=== PATIENT | male | born 1945 | race Caucasian/White ===

== ENCOUNTER 2018-06-26 09:17 | Inpatient (IN) ==
[2018-06-26 10:06] LABS: Basophils % 0.4 % (0.0-0.8); Eosinophils # 0.1 10*3/uL (0.0-0.87); Eosinophils % 1.5 % (0.00-10.9); Hematocrit 43.4 VOL% (42.0-52.0); Hemoglobin 14.3 GM/DL (14.0-18.0); Immature Granulocytes % 0.4 %; Immature Granulocytes Absolute 0.03 #; Lymphocytes % 12.4 % (21.2-54.2); Mean Corpuscular HGB Conc 32.9 GM/DL (32-36); Mean Corpuscular Hemoglobin 30 PG (27-34); Mean Corpuscular Volume 92.3 FL (87-102); Monocytes # 0.7 10*3/uL (0.11-0.8); Neutrophils # 6.3 10*3/uL (1.4-7.4); Neutrophils % 77.3 % (38.7-73.9); Platelet Count 130 T/CUMM (130-400); Red Cell Distribution Width 14.4 % (9.3-17.3); White Blood Count 8.2 T/CUMM (4-12)
[2018-06-26 10:48] LABS: Albumin 3.8 G/DL (3.4-5.0); Bilirubin,Total 1.3 MG/DL (0.2-1.0); Calcium 8.2 MG/DL (8.5-10.1); Osmolality,Calculated 279.4 MOS/KG (273-304); Potassium 4.3 MMOL/L (3.5-5.1); Total Protein 6.8 G/DL (6.4-8.3)
[2018-06-26] MEDS ORDERED: methylPREDNISolone SOD SUC 125 MG/2 ML VIAL IV STA (12:06)
[2018-06-26] MEDS ORDERED: LEVOFLOXACIN INJ 500 MG in PREMIX 1 EACH IV STA (12:07)
[2018-06-26] MEDS ORDERED: ACETAMINOPHEN 325 MG TABLET PO PRN (12:40)
[2018-06-26] MEDS ORDERED: ONDANSETRON 4 MG/2 ML VIAL IV PRN (12:40)
[2018-06-26] MEDS ORDERED: ALBUTEROL 2.5 MG/3 ML NEB RESP TX PRN (13:00)
[2018-06-26] MEDS ORDERED: PNEUMOCOCCAL VACCINE (13 VALENT) 0.5 ML SYRINGE IM ONE (13:51)
[2018-06-26 14:34] LABS: INR 1.8; PT Patient Result 18.8 SECS
[2018-06-26] MEDS ORDERED: WARFARIN 10 MG TABLET PO SCH (18:00)
[2018-06-26] MEDS: ALBUTEROL 2.5 MG/3 ML NEB RESP TX SCH (19:21)
[2018-06-26] MEDS: TAMSULOSIN 0.4 MG CAPSULE PO SCH (21:17)
[2018-06-26] MEDS: CELECOXIB 200 MG CAPSULE PO SCH (21:17)
[2018-06-26] MEDS: DILTIAZEM CD 240 MG CAPSULE PO SCH (21:17)
[2018-06-26] MEDS: FLECAINIDE 100 MG TABLET PO SCH (21:17)
[2018-06-26] MEDS: MELATONIN 3 MG TABLET PO SCH (21:17)
[2018-06-26] MEDS: PRAVASTATIN 20 MG TABLET PO SCH (21:18)
[2018-06-26] MEDS: LORATADINE 10 MG TABLET PO SCH (21:18)
[2018-06-26] MEDS: methylPREDNISolone SOD SUC 40 MG/1 ML VIAL IV SCH (21:20)
[2018-06-26] MEDS: DOXYCYCLINE HYCLATE INJ 100 MG in SODIUM CHLORIDE 0.9% 100 ML IV SCH (21:22)
[2018-06-27] MEDS: ALBUTEROL 2.5 MG/3 ML NEB RESP TX SCH ×4 (00:38→18:56)
[2018-06-27 01:08] LABS: Apearance,Urine CLEAR (Clear); Bilirubin,Urine Negative (Negative); Blood, Urine Negative (Negative); Glucose,Urine (UA) 50 mg/dL (Negative); Ketones,Urine Negative (Negative); Mucus,Urine Occasional /LPF (Occasional); Nitrite,Urine Negative (Negative); Protein,Urine Negative; RBC,Urine 2 /HPF (0-4); Urine Color Yellow (Yellow); Urine Specific Gravity 1.038 (1.001-1.035); WBC,Urine <1 /HPF (0-6)
[2018-06-27 04:50] LABS: Basophils % 0.1 % (0.0-0.8); Hematocrit 42.9 VOL% (42.0-52.0); Immature Granulocytes % 0.6 %; Immature Granulocytes Absolute 0.06 #; Lymphocytes # 0.4 10*3/uL (1.4-4.0); Lymphocytes % 4.2 % (21.2-54.2); Mean Corpuscular HGB Conc 32.6 GM/DL (32-36); Mean Corpuscular Hemoglobin 30 PG (27-34); Mean Corpuscular Volume 92.5 FL (87-102); Mean Platelet Volume 11.2 FL (9.6-12.0); Monocytes # 0.1 10*3/uL (0.11-0.8); Monocytes % 1.1 % (1.7-12.7); Neutrophils # 9.8 10*3/uL (1.4-7.4); Platelet Count 134 T/CUMM (130-400); Red Blood Count 4.64 MC/CUMM (3.8-5.5); Red Cell Distribution Width 14.3 % (9.3-17.3); White Blood Count 10.4 T/CUMM (4-12)
[2018-06-27 05:17] LABS: Band Neutrophils 2 % (0-10); Hypochromasia 1+; Lymphocytes 6 % (20-55); Platelet Estimate Adequate; Segmented Neutrophils 91 % (50-85); Total Cells Counted 100
[2018-06-27 05:21] LABS: Calcium 8.5 MG/DL (8.5-10.1); Osmolality,Calculated 284.3 MOS/KG (273-304); Potassium 4.4 MMOL/L (3.5-5.1); Risk Ratio 2.18; Thyroid Stimulating Hormone 0.76 uIU/ml (0.358-3.74); VLDL CHOLESTEROL 8.6 MG/DL
[2018-06-27] MEDS ORDERED: LEVOFLOXACIN INJ 750 MG in PREMIX 1 EACH IV SCH (09:00)
[2018-06-27] MEDS: FLECAINIDE 100 MG TABLET PO SCH ×2 (10:03→20:57)
[2018-06-27] MEDS: DILTIAZEM CD 240 MG CAPSULE PO SCH ×2 (10:03→20:57)
[2018-06-27] MEDS: PANTOPRAZOLE 40 MG TABLET PO SCH (10:03)
[2018-06-27] MEDS: ASPIRIN EC 81 MG TABLET PO SCH (10:04)
[2018-06-27] MEDS: methylPREDNISolone SOD SUC 40 MG/1 ML VIAL IV SCH ×2 (10:06→20:56)
[2018-06-27] MEDS: DOXYCYCLINE HYCLATE INJ 100 MG in SODIUM CHLORIDE 0.9% 100 ML IV SCH ×2 (10:18→20:56)
[2018-06-27] MEDS: POLYETHYLENE GLYCOL POWDER 17 GM PACK PO SCH (16:21)
[2018-06-27] MEDS ORDERED: WARFARIN 5 MG TABLET PO SCH (18:00)
[2018-06-27] MEDS: LORATADINE 10 MG TABLET PO SCH (20:57)
[2018-06-27] MEDS: TAMSULOSIN 0.4 MG CAPSULE PO SCH (20:57)
[2018-06-27] MEDS: CELECOXIB 200 MG CAPSULE PO SCH (20:57)
[2018-06-27] MEDS: MELATONIN 3 MG TABLET PO SCH (20:57)
[2018-06-27] MEDS: PRAVASTATIN 20 MG TABLET PO SCH (20:57)
[2018-06-28] MEDS: ALBUTEROL 2.5 MG/3 ML NEB RESP TX SCH ×2 (00:50→07:47)
[2018-06-28 05:12] LABS: Basophils % 0.1 % (0.0-0.8); Hemoglobin 13.3 GM/DL (14.0-18.0); Immature Granulocytes % 0.7 %; Immature Granulocytes Absolute 0.11 #; Lymphocytes # 0.4 10*3/uL (1.4-4.0); Lymphocytes % 2.6 % (21.2-54.2); Mean Corpuscular HGB Conc 32.4 GM/DL (32-36); Mean Corpuscular Hemoglobin 30 PG (27-34); Mean Corpuscular Volume 92.1 FL (87-102); Mean Platelet Volume 11.3 FL (9.6-12.0); Monocytes # 0.3 10*3/uL (0.11-0.8); Monocytes % 1.6 % (1.7-12.7); Neutrophils # 14.4 10*3/uL (1.4-7.4); Platelet Count 153 T/CUMM (130-400); Red Blood Count 4.45 MC/CUMM (3.8-5.5); Red Cell Distribution Width 14.7 % (9.3-17.3); White Blood Count 15.2 T/CUMM (4-12)
[2018-06-28 05:20] LABS: INR 2.4
[2018-06-28 05:22] LABS: PT Patient Result 24.7 SECS
[2018-06-28 05:35] LABS: Hypochromasia 1+; Lymphocytes 2 % (20-55); Metamyelocytes 1 %; Microcytosis 1+; Segmented Neutrophils 94 % (50-85); Total Cells Counted 100
[2018-06-28 05:36] LABS: Platelet Estimate Adequate; Polychromasia Slight
[2018-06-28 05:47] LABS: Calcium 8.3 MG/DL (8.5-10.1); Osmolality,Calculated 284.4 MOS/KG (273-304); Potassium 4.3 MMOL/L (3.5-5.1)
[2018-06-28] MEDS: ASPIRIN EC 81 MG TABLET PO SCH (09:01)
[2018-06-28] MEDS: PANTOPRAZOLE 40 MG TABLET PO SCH (09:01)
[2018-06-28] MEDS: POLYETHYLENE GLYCOL POWDER 17 GM PACK PO SCH (09:01)
[2018-06-28] MEDS: FLECAINIDE 100 MG TABLET PO SCH (09:01)
[2018-06-28] MEDS: DILTIAZEM CD 240 MG CAPSULE PO SCH (09:03)
[2018-06-28] MEDS: methylPREDNISolone SOD SUC 40 MG/1 ML VIAL IV SCH (09:07)
[2018-06-28] MEDS: DOXYCYCLINE HYCLATE INJ 100 MG in SODIUM CHLORIDE 0.9% 100 ML IV SCH (09:11)
[2018-06-28 11:49] VITALS: BP 150/70
[2018-07-03] MEDS ORDERED: ERGOCALCIFEROL 50,000 UNIT CAPSULE PO SCH (09:00)
== END 2018-06-28 14:03 | disposition home health service (06) | DRG 194 ==
LOC: N.ED 09:17 → N.EDINP 12:19 → N.2E 12:51
PROVIDERS: ADMIT Internal Medicine; ATTEND Internal Medicine

== ENCOUNTER 2021-12-04 21:43 | Inpatient (IN) ==
[2021-12-05] MEDS ORDERED: ONDANSETRON 4 MG/2 ML VIAL IV PRN (00:08)
[2021-12-05] MEDS ORDERED: NICOTINE 21 MG/24 HR PATCH TRANSDERM PRN (00:08)
[2021-12-05] MEDS ORDERED: guaiFENesin/DM ER 600-30 MG TABLET PO PRN (00:08)
[2021-12-05] MEDS ORDERED: GLUCAGON 1 MG VIAL IM PRN (00:08)
[2021-12-05] MEDS ORDERED: hydrALAZINE 20 MG/1 ML VIAL IV PRN (00:08)
[2021-12-05] MEDS ORDERED: ZALEPLON 5 MG CAPSULE PO PRN (00:08)
[2021-12-05] MEDS ORDERED: DOCUSATE SODIUM 100 MG CAPSULE PO PRN (00:08)
[2021-12-05] MEDS ORDERED: diphenhydrAMINE CAP 25 MG CAPSULE PO PRN (00:08)
[2021-12-05] MEDS ORDERED: ACETAMINOPHEN 325 MG TABLET PO PRN (00:08)
[2021-12-05] MEDS ORDERED: DEXTROSE 10% 250 ML BAG IV PRN (00:13)
[2021-12-05] MEDS ORDERED: FUROSEMIDE 40 MG/4 ML VIAL IV ONE (00:19)
[2021-12-05] MEDS ORDERED: METOPROLOL TARTRATE 25 MG TABLET PO ONE (00:33)
[2021-12-05] MEDS ORDERED: RIVAROXABAN 20 MG TABLET PO ONE (00:33)
[2021-12-05] MEDS ORDERED: ALBUTEROL/IPRATROPIUM 3 ML NEB RESP TX SCH (01:00)
[2021-12-05] MEDS ORDERED: LEVOFLOXACIN INJ 750 MG/150 ML PREMIX IV SCH (01:00)
[2021-12-05 01:04] LABS: ABG HCO3 23.5 MMOL/L (20-26); ABG Oxygen Saturation 94.2 % (95-100); ABG PCO2 38.1 MM HG (35-48); ABG PH 7.398 (7.35-7.45); ABG PO2 75.9 MM HG (80-95); ABG TCO2 19.5 MMOL/L (23-27)
[2021-12-05 01:14] LABS: Basophils % 0.1 % (0.0-0.8); Hematocrit 50.3 VOL% (42.0-52.0); Hemoglobin 16.6 GM/DL (14.0-18.0); Immature Granulocytes % 0.8 %; Immature Granulocytes Absolute 0.16 #; Lymphocytes % 4.6 % (21.2-54.2); Mean Corpuscular Volume 90.3 FL (87-102); Mean Platelet Volume 11.1 FL (9.6-12.0); Monocytes % 4.8 % (1.7-12.7); Neutrophils % 89.7 % (38.7-73.9); Platelet Count 199 T/CUMM (130-400); Red Blood Count 5.57 MC/CUMM (3.8-5.5); Red Cell Distribution Width 14.7 % (9.3-17.3); White Blood Count 20.7 T/CUMM (4-12)
[2021-12-05 01:30] LABS: Calcium 9.5 MG/DL (8.5-10.1); Potassium 4.2 MMOL/L (3.5-5.1)
[2021-12-05 01:49] LABS: INR 1.2; Partial Thromboplastin Time 30.7 SECS (23.8-32.1)
[2021-12-05 01:57] LABS: Lymphocytes 4 % (20-55); Total Cells Counted 100
[2021-12-05 01:58] LABS: Platelet Estimate Adequate
[2021-12-05 04:59] VITALS: BP 261/42
[2021-12-05] MEDS ORDERED: PANTOPRAZOLE 40 MG TABLET PO SCH (09:00)
== END 2021-12-05 01:56 | disposition expired ==
LOC: N.TELEN 23:11
PROVIDERS: ADMIT Internal Medicine; ATTEND Internal Medicine